=== PATIENT | male | born 1940 | race Caucasian/White ===

== ENCOUNTER 2017-02-06 13:04 | Inpatient (IN) | payer MEDICARE ==
[~2017-02-06] VITALS: Ht 182.9 cm; Wt 65.8 kg
[2017-02-06 19:07] VITALS: BP 126/91
[2017-02-06 20:10] VITALS: BP 109/71
[2017-02-06] MEDS ORDERED: Zolpidem 5mg tab ORAL PRN (22:15)
[2017-02-06 22:49] LABS: ABG ALLEN TEST POSITIVE
[2017-02-06] MEDS ORDERED: LORAZEPAM1 MG ORAL (23:28)
[2017-02-06] MEDS ORDERED: MIRTAZAPINE15 MG ORAL (23:28)
[2017-02-06] MEDS: Solu-MEDROL 125mg Inj IVP SCH (23:36)
[2017-02-06] MEDS: cefTRIAXone 1 GM in D5W 55 ML IVPB SCH (23:36)
[2017-02-07] MEDS ORDERED: BREO ELLIPTA 11 EACH IH (01:20)
[2017-02-07] MEDS ORDERED: ZOLPIDEM TARTRA10 MG ORAL (01:20)
[2017-02-07] MEDS ORDERED: ASPIR 8181 MG ORAL (01:20)
[2017-02-07] MEDS ORDERED: BELSOMRA20 MG PO (01:20)
[2017-02-07] MEDS ORDERED: LIPITOR80 MG ORAL (01:20)
[2017-02-07] MEDS ORDERED: OXYCODONE HCL10 MG ORAL (01:20)
[2017-02-07] MEDS ORDERED: GABAPENTIN100 MG ORAL (01:20)
[2017-02-07] MEDS ORDERED: INCRUSE ELLI62.5 MCG IH (01:20)
[2017-02-07] MEDS ORDERED: CLOPIDOGREL75 MG ORAL (01:20)
[2017-02-07] MEDS ORDERED: TAMSULOSIN HCL0.4 MG ORAL (01:20)
[2017-02-07 03:53] VITALS: BP 97/58
[2017-02-07] MEDS: Solu-MEDROL 125mg Inj IVP SCH ×3 (05:52→17:59)
[2017-02-07 08:00] VITALS: BP 115/70
[2017-02-07] MEDS: Albuterol ud Inhalation HHN SCH ×5 (08:06→23:19)
[2017-02-07] MEDS: Atorvastatin 80mg tab ORAL SCH (08:44)
[2017-02-07] MEDS: Aspirin EC 81mg tab ORAL SCH (08:44)
[2017-02-07] MEDS ORDERED: Breo Ellipta 100/25mcg - 14 dose INH SCH (09:00)
--- NOTE | 2017-02-07 10:48 | Diagnostic Imaging Report ---
Indication: Dyspnea Comparison: None 2 views of the chest obtained. Lungs are hyperexpanded. There is no infiltrate identified. Heart size is normal. Bones are osteopenic. Impression: COPD
[2017-02-07 11:27] LABS: MEAN CORPUSCULAR HEMOGLOBIN 32.2 PG (27.0-31.0); MEAN CORPUSCULAR HGB CONC 33.7 G/DL (32.0-36.0); MEAN CORPUSCULAR VOLUME 96 FL (80-99); MEAN PLATELET VOLUME 7.7 FL (6.5-10.1); PLATELET COUNT 227 K/UL (150-450); RED BLOOD COUNT 4.44 M/UL (4.70-6.10); RED CELL DISTRIBUTION WIDTH 12.6 % (11.6-14.8); WHITE BLOOD COUNT 6.4 K/UL (4.8-10.8)
[2017-02-07 11:46] LABS: ANION GAP 11 (5-15); BAND NEUTROPHILS % (MANUAL) 0 % (0-8); BASOPHILS % (MANUAL) 0 % (0-2); CALCIUM 9.4 mg/dL (8.6-10.2); CARBON DIOXIDE 29 mEQ/L (20-30); CHLORIDE 97 mEQ/L (98-107); CREATININE 0.8 mg/dL (0.7-1.2); EOSINOPHILS % (MANUAL) 0 % (0-3); HEMOLYSIS 7; LYMPHOCYTES % (MANUAL) 3 % (20-45); NEUTROPHILS % (MANUAL) 96 % (45-75); PLATELET ESTIMATE ADEQUATE; PLATELET MORPHOLOGY NORMAL; POTASSIUM 4.2 mEQ/L (3.4-4.9); SODIUM 137 mEQ/L (135-145); TOTAL CELLS COUNTED 100
[2017-02-07 12:00] VITALS: BP 113/60
[2017-02-07] MEDS: INCRUSE ELLIPTA ORAL SCH ×2 (13:28→14:37)
[2017-02-07] MEDS ORDERED: NS 275ml ONE (14:15)
[2017-02-07] MEDS ORDERED: Tubing IV Secondary IV ONE (14:15)
[2017-02-07] MEDS: Milk of Magnesia 30ml Ud ORAL PRN (15:09)
[2017-02-07] MEDS: LORazepam 1mg tab ORAL PRN (15:09)
[2017-02-07 15:55] VITALS: BP 103/56
[2017-02-07 19:54] VITALS: BP 133/80
[2017-02-07] MEDS: Tamsulosin 0.4mg cap ORAL SCH (20:48)
[2017-02-07] MEDS: cefTRIAXone 1 GM in D5W 55 ML IVPB SCH (23:23)
[2017-02-07] MEDS: Breo Ellipta 100/25mcg - 14 dose INH SCH (23:32)
--- NOTE | 2017-02-07 23:46 | History and Physical Report ---
DATE OF ADMISSION: 02/06/2017 REASON FOR ADMISSION: COPD exacerbation. HISTORY OF PRESENT ILLNESS: This is a 76-year-old male with end-stage COPD. The patient is on oxygen therapy. The patient has been tried with IV steroids at home, but has not improved. The patient with significantly increased shortness of breath and congestion. The patient is now being admitted for ongoing care and management and further recommendation. The patient has denied any fevers or chills. Denies any ill contacts. The patient denies any recent travel. The patient does have oxygen at home. PAST MEDICAL HISTORY: Notable for end-stage COPD, atherosclerotic heart disease, hypercholesterolemia, chronic nasal congestion, neuropathy, anxiety, chronic pain syndrome, and benign prostatic hyperplasia. MEDICATIONS: Reviewed. ALLERGIES: Reviewed. SOCIAL HISTORY: The patient with history of smoking. The patient is disabled, retired, and lives at home alone. The patient is on oxygen. REVIEW OF SYSTEMS: All 10 points reviewed and otherwise negative. PHYSICAL EXAMINATION: GENERAL: The patient is well developed without significant distress. VITAL SIGNS: Noted and reviewed. Blood pressure 115/70, pulse 77, temperature 97.2 degrees, O2 saturation 95% on two liters, and respiratory rate 18. HEENT: Fairly negative. The patient's extraocular movements are grossly intact. Oropharynx moist. NECK: Supple. No adenopathy. LUNGS: With poor air entry bilaterally. CARDIAC: very distant. Regular rate and rhythm without murmur, rubs, or gallops. ABDOMEN: Soft, nontender, and scaphoid. No hepatosplenomegaly. EXTREMITIES: No cyanosis or clubbing. No edema. NEUROLOGIC: The patient is grossly nonfocal. Alert and oriented x3. LABORATORY AND DIAGNOSTIC DATA: Laboratory data reviewed. IMPRESSION: 1. Chronic obstructive pulmonary disease acute exacerbation. 2. Acute on chronic carbon dioxide retention. 3. Respiratory failure. 4. Atherosclerotic heart disease. 5. Hypercholesterolemia. 6. Benign prostatic hyperplasia. 7. Chronic pain syndrome. RECOMMENDATIONS: We will clinically monitor medications and proceed with IV Solu-Medrol, IV Rocephin, nebulizer therapy, and followup x-ray and labs. Hope to see further improvement, and discharge planning once medically improved. Roberto Hunt M.D. DR: Mika JOB#: [id number] CC: AURE
[2017-02-07 23:52] VITALS: BP 121/75
[2017-02-08] MEDS: LORazepam 1mg tab ORAL PRN ×4 (00:13→19:56)
[2017-02-08] MEDS: Solu-MEDROL 125mg Inj IVP SCH ×4 (00:13→17:16)
[2017-02-08] MEDS: Albuterol ud Inhalation HHN SCH ×5 (03:00→19:59)
[2017-02-08 04:00] VITALS: BP 110/52
[2017-02-08 08:41] VITALS: BP 133/75
[2017-02-08] MEDS: Aspirin EC 81mg tab ORAL SCH (08:54)
[2017-02-08] MEDS: Atorvastatin 80mg tab ORAL SCH (08:54)
--- NOTE | 2017-02-08 08:59 | General Progress Note ---
Assessment/Plan Assessment/Plan IMPRESSION: 1. Chronic obstructive pulmonary disease acute exacerbation. 2. Acute on chronic carbon dioxide retention. 3. Respiratory failure. 4. Atherosclerotic heart disease. 5. Hypercholesterolemia. 6. Benign prostatic hyperplasia. 7. Chronic pain syndrome. PLAN care noted IV steroids nebs oxygen IV antibiotics dc once improved impression, plan, and exam edited and reviewed in detail care discussed with RN Subjective Allergies: Coded Allergies: LEVOFLOXACIN (Verified Allergy, Unknown, 02/06/17) Subjective persistent dyspnea imaging and labs discussed Objective Last 24 Hour Vital Signs Date Time Temp Pulse Resp B/P Pulse Ox O2 Delivery O2 Flow Rate FiO2 02/08/17 08:41 97.5 83 17 133/75 98 Nasal Cannula 2.0 02/08/17 07:37 78 18 99 Nasal Cannula 2.0 02/08/17 07:27 76 18 96 Nasal Cannula 2.0 02/08/17 07:27 Nasal Cannula 2.0 02/08/17 07:27 96 Nasal Cannula 2.0 02/08/17 04:00 97.9 71 20 110/52 98 Nasal Cannula 2.0 02/08/17 03:21 Nasal Cannula 2.0 28 02/08/17 03:21 Nasal Cannula 2.0 28 02/07/17 23:52 97.0 75 18 121/75 97 Nasal Cannula 2.0 02/07/17 23:28 75 16 99 Nasal Cannula 2.0 02/07/17 23:19 73 18 97 Nasal Cannula 2.0 28 02/07/17 19:54 97.2 82 20 133/80 95 Nasal Cannula 2.0 02/07/17 19:40 79 16 98 Nasal Cannula 2.0 02/07/17 19:32 96 Nasal Cannula 2.0 28 02/07/17 19:32 76 18 96 Nasal Cannula 2.0 28 02/07/17 19:32 Nasal Cannula 2.0 28 02/07/17 15:55 97.9 94 18 103/56 95 02/07/17 14:54 76 18 96 Nasal Cannula 2.0 02/07/17 14:40 94 18 94 Nasal Cannula 2.0 02/07/17 12:03 Nasal Cannula 2.0 02/07/17 12:03 Nasal Cannula 2.0 02/07/17 12:00 97.9 78 18 113/60 97 Nasal Cannula 02/07/17 11:55 78 18 98 Nasal Cannula 2.0 02/07/17 11:45 82 18 95 Nasal Cannula 2.0 Intake and Output 02/07/17 02/08/17 19:00 07:00 Intake Total 305 ml Balance 305 ml Intake Oral 250 ml IV Total 55 ml # Voids 5 Laboratory Tests 02/07/17 11:15: White Blood Count 6.4, Red Blood Count 4.44L, Hemoglobin 14.3, Hematocrit 42.5, Mean Corpuscular Volume 96, Mean Corpuscular Hemoglobin 32.2H, Mean Corpuscular Hemoglobin Concent 33.7, Red Cell Distribution Width 12.6, Platelet Count 227, Mean Platelet Volume 7.7, Neutrophils (%) (Auto) , Lymphocytes (%) (Auto) , Monocytes (%) (Auto) , Eosinophils (%) (Auto) , Basophils (%) (Auto) , Differential Total Cells Counted 100, Neutrophils % (Manual) 96H, Lymphocytes % (Manual) 3L, Monocytes % (Manual) 1, Eosinophils % (Manual) 0, Basophils % ( Manual) 0, Band Neutrophils 0, Platelet Estimate Adequate, Platelet Morphology Normal, Red Blood Cell Morphology Normal, Sodium Level 137, Potassium Level 4.2 , Chloride Level 97L, Carbon Dioxide Level 29, Anion Gap 11, Blood Urea Nitrogen 21, Creatinine 0.8, Estimat Glomerular Filtration Rate , Glucose Level 151H, Calcium Level 9.4 Height (Feet): 6 Weight (Pounds): 145 Objective GENERAL: The patient is well developed without significant distress. weak and thin HEENT: Fairly negative. The patient's extraocular movements are grossly intact. Oropharynx moist. NECK: Supple. No adenopathy. LUNGS: With poor air entry bilaterally. CARDIAC: distant. Regular rate and rhythm without murmur, rubs, or gallops. ABDOMEN: Soft, nontender, and scaphoid. No hepatosplenomegaly. EXTREMITIES: No cyanosis or clubbing. No edema. NEUROLOGIC: The patient is grossly nonfocal. Alert and oriented x3. INNA LOYA February 08, 2017 08:59
[2017-02-08] MEDS: INCRUSE ELLIPTA ORAL SCH (10:47)
[2017-02-08 11:50] VITALS: BP 98/57
[2017-02-08 16:28] VITALS: BP 108/60
[2017-02-08] MEDS: Milk of Magnesia 30ml Ud ORAL PRN (17:15)
[2017-02-08] MEDS: Tamsulosin 0.4mg cap ORAL SCH (19:56)
[2017-02-08 20:00] VITALS: BP 133/82
[2017-02-08] MEDS: cefTRIAXone 1 GM in D5W 55 ML IVPB SCH (22:38)
[2017-02-08 23:52] VITALS: BP 108/61
[2017-02-09] MEDS: Albuterol ud Inhalation HHN SCH ×7 (00:07→23:00)
[2017-02-09] MEDS: Breo Ellipta 100/25mcg - 14 dose INH SCH (00:11)
[2017-02-09 04:00] VITALS: BP 115/67
[2017-02-09] MEDS: Solu-MEDROL 125mg Inj IVP SCH ×5 (06:08→23:13)
[2017-02-09 08:00] VITALS: BP 107/69
[2017-02-09] MEDS: LORazepam 1mg tab ORAL PRN ×4 (08:28→22:32)
[2017-02-09] MEDS: Aspirin EC 81mg tab ORAL SCH (08:28)
[2017-02-09] MEDS: Atorvastatin 80mg tab ORAL SCH (08:28)
--- NOTE | 2017-02-09 09:21 | General Progress Note ---
Assessment/Plan Assessment/Plan IMPRESSION: 1. Chronic obstructive pulmonary disease acute exacerbation. 2. Acute on chronic carbon dioxide retention. 3. Respiratory failure. 4. Atherosclerotic heart disease. 5. Hypercholesterolemia. 6. Benign prostatic hyperplasia. 7. Chronic pain syndrome. PLAN care noted IV steroids- as is nebs oxygen IV antibiotics dc planning with HH impression, plan, and exam edited and reviewed in detail care discussed with RN Subjective Allergies: Coded Allergies: LEVOFLOXACIN (Verified Allergy, Unknown, 02/06/17) Subjective some dyspnea imaging and labs discussed with patient issues reviewed in detail Objective Last 24 Hour Vital Signs Date Time Temp Pulse Resp B/P Pulse Ox O2 Delivery O2 Flow Rate FiO2 02/09/17 08:00 96.6 81 18 107/69 99 Nasal Cannula 2.0 02/09/17 07:06 82 16 99 Nasal Cannula 2.0 28 02/09/17 06:56 77 14 97 Nasal Cannula 2.0 28 02/09/17 06:56 Nasal Cannula 2.0 28 02/09/17 06:56 97 Nasal Cannula 2.0 02/09/17 04:00 96.3 69 18 115/67 98 Nasal Cannula 2.0 02/09/17 03:17 Nasal Cannula 02/09/17 03:16 Nasal Cannula 02/09/17 00:13 Nasal Cannula 02/09/17 00:12 80 22 95 Nasal Cannula 3.0 32 02/08/17 23:52 97.5 78 20 108/61 92 Nasal Cannula 02/08/17 20:00 97.0 89 19 133/82 89 Room Air 02/08/17 20:00 90 22 93 Nasal Cannula 2.0 28 02/08/17 19:58 93 Nasal Cannula 2.0 28 02/08/17 19:58 Nasal Cannula 2.0 28 02/08/17 16:28 98.1 94 18 108/60 95 Nasal Cannula 2.0 02/08/17 15:23 82 18 99 Nasal Cannula 2.0 28 02/08/17 15:13 81 18 96 Nasal Cannula 2.0 28 02/08/17 11:50 97.7 80 17 98/57 Nasal Cannula 2.0 02/08/17 10:57 80 18 99 Nasal Cannula 2.0 28 02/08/17 10:47 74 18 96 Nasal Cannula 2.0 28 02/08/17 10:47 78 18 96 Nasal Cannula 2.0 28 Intake and Output 02/08/17 02/09/17 19:00 07:00 Intake Total 600 ml 55 ml Balance 600 ml 55 ml Intake Oral 600 ml IV Total 55 ml # Voids 4 Height (Feet): 6 Weight (Pounds): 145 Objective GENERAL: The patient is well developed without significant distress. weak and thin HEENT: Fairly negative. The patient's extraocular movements are grossly intact. Oropharynx moist. NECK: Supple. No adenopathy. LUNGS: With poor air entry bilaterally. no rhonchi or wheeze CARDIAC: distant. Regular rate and rhythm without murmur, rubs, or gallops. ABDOMEN: Soft, nontender, and scaphoid. No hepatosplenomegaly. EXTREMITIES: No cyanosis or clubbing. No edema. NEUROLOGIC: The patient is grossly nonfocal. Alert and oriented x3. INNA LOYA February 09, 2017 09:21
[2017-02-09] MEDS: Milk of Magnesia 30ml Ud ORAL PRN (11:34)
[2017-02-09 12:06] VITALS: BP 120/65
[2017-02-09] MEDS: INCRUSE ELLIPTA ORAL SCH (12:49)
[2017-02-09 16:12] VITALS: BP 113/62
[2017-02-09] MEDS: oxyCODONE 5mg IR tab ORAL PRN ×2 (17:19→22:32)
[2017-02-09 20:06] VITALS: BP 142/80
[2017-02-09] MEDS: Tamsulosin 0.4mg cap ORAL SCH (22:31)
[2017-02-09] MEDS: cefTRIAXone 1 GM in D5W 55 ML IVPB SCH (22:32)
[2017-02-09 23:54] VITALS: BP 111/59
[2017-02-10] MEDS: Albuterol ud Inhalation HHN SCH ×6 (03:00→23:23)
[2017-02-10 03:59] VITALS: BP 123/72
[2017-02-10] MEDS: Solu-MEDROL 125mg Inj IVP SCH ×3 (05:35→18:07)
[2017-02-10] MEDS: oxyCODONE 5mg IR tab ORAL PRN ×3 (07:22→18:08)
[2017-02-10] MEDS: LORazepam 1mg tab ORAL PRN ×2 (07:22→13:52)
[2017-02-10 07:54] VITALS: BP 140/79
--- NOTE | 2017-02-10 07:54 | General Progress Note ---
Assessment/Plan Assessment/Plan IMPRESSION: 1. Chronic obstructive pulmonary disease acute exacerbation. 2. Acute on chronic carbon dioxide retention. 3. Respiratory failure. 4. Atherosclerotic heart disease. 5. Hypercholesterolemia. 6. Benign prostatic hyperplasia. 7. Chronic pain syndrome. PLAN care noted exam without improvement IV steroids- as is nebs oxygen IV antibiotics dc planning with HH in am impression, plan, and exam edited and reviewed in detail care discussed with RN Subjective Allergies: Coded Allergies: LEVOFLOXACIN (Verified Allergy, Unknown, 02/06/17) Subjective still with sob imaging and labs discussed with patient patient would like to go home not interested in rehab Objective Last 24 Hour Vital Signs Date Time Temp Pulse Resp B/P Pulse Ox O2 Delivery O2 Flow Rate FiO2 02/10/17 03:59 96.0 77 20 123/72 98 Nasal Cannula 2.5 02/10/17 03:08 Nasal Cannula 02/10/17 03:08 Nasal Cannula 02/09/17 23:54 96.4 81 20 111/59 96 Room Air 02/09/17 23:08 Nasal Cannula 2.0 02/09/17 23:07 Nasal Cannula 2.0 02/09/17 20:06 97.7 87 20 142/80 97 Nasal Cannula 2.5 02/09/17 19:54 Nasal Cannula 2.0 02/09/17 19:53 Nasal Cannula 2.0 02/09/17 19:53 Nasal Cannula 2.0 02/09/17 19:53 97 Nasal Cannula 2.0 02/09/17 16:12 97.7 78 18 113/62 95 Nasal Cannula 2.0 02/09/17 14:53 79 18 98 Nasal Cannula 2.0 02/09/17 14:48 78 16 98 Nasal Cannula 2.0 02/09/17 12:49 72 14 98 Nasal Cannula 2.0 02/09/17 12:49 74 14 98 Nasal Cannula 2.0 02/09/17 12:45 28 02/09/17 12:45 Nasal Cannula 2.0 02/09/17 12:06 97.8 85 18 120/65 95 Nasal Cannula 2.0 02/09/17 11:20 81 16 100 Nasal Cannula 2.0 28 02/09/17 11:12 79 12 96 Nasal Cannula 2.0 28 02/09/17 08:00 96.6 81 18 107/69 99 Nasal Cannula 2.0 Intake and Output 02/09/17 02/10/17 19:00 07:00 Intake Total 720 ml 55 ml Balance 720 ml 55 ml Intake Oral 720 ml IV Total 55 ml # Voids 4 5 Height (Feet): 6 Weight (Pounds): 145 Objective GENERAL: The patient is well developed without significant distress. weak and thin HEENT: Fairly negative. The patient's extraocular movements are grossly intact. Oropharynx moist. NECK: Supple. No adenopathy. LUNGS: With poor air entry bilaterally. no rhonchi or wheeze CARDIAC: distant. Regular rate and rhythm without murmur, rubs, or gallops. ABDOMEN: Soft, nontender, and scaphoid. No hepatosplenomegaly. EXTREMITIES: No cyanosis or clubbing. No edema. NEUROLOGIC: The patient is grossly nonfocal. Alert and oriented x3. INNA LOYA February 10, 2017 07:54
[2017-02-10] MEDS: Atorvastatin 80mg tab ORAL SCH (08:34)
[2017-02-10] MEDS: Aspirin EC 81mg tab ORAL SCH (08:35)
[2017-02-10 11:31] VITALS: BP 121/72
[2017-02-10] MEDS: INCRUSE ELLIPTA ORAL SCH (12:57)
[2017-02-10] MEDS: Milk of Magnesia 30ml Ud ORAL PRN (13:58)
[2017-02-10 15:40] VITALS: BP 109/59
[2017-02-10 19:49] VITALS: BP 137/78
[2017-02-10] MEDS: Tamsulosin 0.4mg cap ORAL SCH (22:17)
[2017-02-10] MEDS: Breo Ellipta 100/25mcg - 14 dose INH SCH ×2 (23:23)
[2017-02-11] VITALS: BP 108/60
[2017-02-11] MEDS: Solu-MEDROL 125mg Inj IVP SCH ×4 (00:07→10:52)
[2017-02-11] MEDS: LORazepam 1mg tab ORAL PRN ×2 (00:27→08:57)
[2017-02-11] MEDS: oxyCODONE 5mg IR tab ORAL PRN ×2 (00:31→08:57)
[2017-02-11] MEDS: Albuterol ud Inhalation HHN SCH ×3 (02:56→11:13)
[2017-02-11 04:00] VITALS: BP 115/69
[2017-02-11] MEDS: Atorvastatin 80mg tab ORAL SCH (07:54)
[2017-02-11] MEDS: Aspirin EC 81mg tab ORAL SCH (07:54)
[2017-02-11 08:06] VITALS: BP 114/61
--- NOTE | 2017-02-11 08:55 | General Progress Note ---
Assessment/Plan Assessment/Plan IMPRESSION: 1. Chronic obstructive pulmonary disease acute exacerbation. 2. Acute on chronic carbon dioxide retention. 3. Respiratory failure. 4. Atherosclerotic heart disease. 5. Hypercholesterolemia. 6. Benign prostatic hyperplasia. 7. Chronic pain syndrome. PLAN care noted exam without improvement resume home meds nebs oxygen IV antibiotics- dc dc planning to home with outpatient follow up impression, plan, and exam edited and reviewed in detail care discussed with RN Subjective Allergies: Coded Allergies: LEVOFLOXACIN (Verified Allergy, Unknown, 02/06/17) Subjective ready for dc does not want rehab or home health Objective Last 24 Hour Vital Signs Date Time Temp Pulse Resp B/P Pulse Ox O2 Delivery O2 Flow Rate FiO2 02/11/17 08:06 97.4 80 18 114/61 94 Nasal Cannula 2.0 02/11/17 07:42 77 14 98 Nasal Cannula 2.0 28 02/11/17 07:22 Nasal Cannula 2.0 28 02/11/17 07:22 Nasal Cannula 2.0 02/11/17 07:22 96 Nasal Cannula 2.0 02/11/17 04:00 97.7 75 18 115/69 99 Nasal Cannula 2.0 02/11/17 02:57 Nasal Cannula 02/11/17 02:56 Nasal Cannula 02/11/17 00:00 97.3 70 18 108/60 96 Nasal Cannula 2.0 02/10/17 23:33 76 16 99 Nasal Cannula 2.0 28 02/10/17 23:25 76 16 98 Nasal Cannula 2.0 28 02/10/17 19:49 97.3 90 18 137/78 95 Nasal Cannula 2.0 02/10/17 19:05 Nasal Cannula 2.0 02/10/17 19:05 96 Nasal Cannula 2.0 28 02/10/17 19:05 Nasal Cannula 2.0 28 02/10/17 19:05 Nasal Cannula 2.0 28 02/10/17 15:40 98.4 80 20 109/59 98 Nasal Cannula 2.0 02/10/17 15:30 Nasal Cannula 2.0 02/10/17 15:30 Nasal Cannula 2.0 02/10/17 12:57 82 18 98 Nasal Cannula 2.0 28 02/10/17 12:57 82 16 98 Nasal Cannula 2.0 02/10/17 11:31 97.7 77 19 121/72 96 Nasal Cannula 2.0 02/10/17 10:55 Nasal Cannula 2.0 28 02/10/17 10:55 Nasal Cannula 2.0 28 Intake and Output 02/10/17 02/11/17 19:00 07:00 Intake Total 720 ml 480 ml Balance 720 ml 480 ml Intake Oral 720 ml 480 ml # Voids 3 Height (Feet): 6 Weight (Pounds): 145 Objective GENERAL: The patient is well developed without significant distress. weak and thin HEENT: Fairly negative. The patient's extraocular movements are grossly intact. Oropharynx moist. NECK: Supple. No adenopathy. LUNGS: With poor air entry bilaterally. no rhonchi or wheeze CARDIAC: distant. Regular rate and rhythm without murmur, rubs, or gallops. ABDOMEN: Soft, nontender, and scaphoid. No hepatosplenomegaly. EXTREMITIES: No cyanosis or clubbing. No edema. NEUROLOGIC: The patient is grossly nonfocal. Alert and oriented x3. INNA LOYA February 11, 2017 08:55
--- NOTE | 2017-02-12 14:28 | Discharge Summary ---
Discharge Summary Hospital Course Date of Admission February 06, 2017 at 18:58 Date of Discharge February 11, 2017 at 11:30 Admitting Diagnosis HPI Jong Smith, III is a 76 year old male who was admitted on February 06, 2017 at 18:58 for Copd (Chronic Obstruction Pulmonary Desease) Hospital Course [id number] Discharge Discharge Disposition Patient was discharged to Home with Discharge Diagnoses: Emily Klein NP Feb 12, 2017 14:28
--- NOTE | 2017-02-13 00:45 | Discharge Summary 2 SIG ---
DATE OF ADMISSION: 02/06/2017 DATE OF DISCHARGE: 02/11/2017 BRIEF HOSPITAL COURSE: The patient is a 76-year-old male with end-stage chronic obstructive pulmonary disease and is on oxygen therapy, has been tried with IV steroids at home, but has not improved. The patient had significantly increased shortness of breath and congestion and was admitted for further management. He was given IV Solu-Medrol and IV Rocephin and nebulizer therapy. Chest x-ray done showed chronic obstructive pulmonary disease. He was continued on his home medications and was eventually discharged home with home health. FINAL DIAGNOSES: 1. Acute chronic obstructive pulmonary disease exacerbation. 2. Acute on chronic CO2 retention. 3. Respiratory failure. 4. Atherosclerotic heart disease. 5. Hypercholesterolemia. 6. Benign prostatic hypertrophy. 7. Chronic pain syndrome. Roberto Hunt M.D. I have been assigned to dictate discharge summary on this account and I was not involved in the patient's management. Emily lKein N.P. DR: JEANNETTE JOB#: [id number] CC: AURE
== END 2017-02-11 11:30 | disposition home health service (06) | DRG 190 ==
LOC: 4W 18:58
DX: J44.1 Chronic obstructive pulmonary disease with (acute) exacerbation (principal); J96.90 Respiratory failure, unspecified, unspecified whether with hypoxia or hypercapnia; E87.2 Acidosis; Z99.81 Dependence on supplemental oxygen; I25.10 Atherosclerotic heart disease of native coronary artery without angina pectoris; E78.00 Pure hypercholesterolemia, unspecified; N40.0 Benign prostatic hyperplasia without lower urinary tract symptoms; G89.4 Chronic pain syndrome; Z87.891 Personal history of nicotine dependence
CPT/HCPCS: 36415; 36600; 71020; 80048; 82803; 85007; 85025; 94640; 94664; 94760